=== PATIENT | male | born 1970 | race Two or more races ===

== ENCOUNTER 2024-07-12 14:11 | Outpatient (AMB) | payer OTHER, SELFPAY ==
[2024-07-12 14:42] VITALS: BP 137/77; PULSE 82; RESP 19; TEMP 36.6; O2SAT 95; BMI 34.4
--- NOTE | 2024-07-12 14:42 | PD.ORTHCLVIS ---
Vital signs 07/12/24 14:42 Height 1.63 m Height Method Stated Weight 91.654 kg Weight Measurement Method Standing Scale BMI 34.4 BP 137/77 H Blood Pressure Source Automatic Cuff Blood Pressure Location Left Upper Arm Position Sitting Respiration 19 Pulse 82 Pulse Source Monitor Temp 97.8 F Temp Source Temporal Artery Scan Pulse Oximetry (%) 95 Oxygen Delivery Method Room Air Med/Allergies Allergies & Medications Allergies No Known Drug Allergies Allergy (Verified 07/12/24 14:43) Medication Reconciliation amlodipine 10 mg tablet 10 mg PO QDAY 04/05/24 [History Confirmed 07/12/24] atorvastatin 20 mg tablet 20 mg PO QDAY 04/05/24 [History Confirmed 07/12/24] hydrochlorothiazide 25 mg tablet 25 mg PO QDAY 04/05/24 [History Confirmed 07/12/24] lisinopril 10 mg tablet 10 mg PO QDAY 04/05/24 [History Confirmed 07/12/24] meloxicam 7.5 mg tablet 7.5 mg PO QDAY #45 tabs 04/05/24 [Rx Confirmed 07/12/24] Exam Exam Patient is in no acute distress and is cooperative with the examination today. Breathing is nonlabored. In no respiratory distress. Bilateral extremities were evaluated and demonstrates sensation intact to light touch. Palpable pedal pulses are present. No significant edema is present. Bilateral hips were examined. The patient has no pain with log roll of the hips. Internal rotation to 30 degrees and external rotation to 30 degrees is painless. Negative FADIR. The left knee was examined. The left knee is in [varus] alignment. Range of motion from [0-115] degrees. Knee is stable to varus and valgus as well as AP translation with <5mm. Patient has a [negative] McMurrays. There is [no] pain with patellofemoral compression and [no] crepitus noted. The knee is [tender] to palpation [medially]. The right knee was also examined. The right knee is in [varus] alignment. Range of motion from [0-120] degrees. Knee is stable to varus and valgus as well as AP translation with <5mm. Patient has a [negative] McMurrays. There is [no] pain with patellofemoral compression and [no] crepitus noted. The knee is [tender] to palpation [medially]. Bilateral knee xrays demonstrate significant joint space narrowing and medially. There is complete obliteration of the medial joint space. Assessment and Plan Problem List (1) Degenerative arthritis of knee, bilateral: Status: Acute Plan: Patient is a pleasant 53-year-old male with bilateral knee pain and bilateral knee arthritis. We discussed nonoperative and operative options. We discussed cortisone injections and he wants them today. Recommend knee cortisone injections as patient would like to proceed with conservative treatment at this time. The risks and benefits of the procedure were reviewed with the patient and patient gave verbal consent to continue with the procedure. Procedure: performed by Dr. Crowell Using sterile technique the Bilateral knees were thoroughly prepped with alcohol, and approximately 1 cc of Kenalog 40 mg/mL and 4 cc of 1% lidocaine was injected into each knee without resistance into the medial tibial femoral joint space. The patient tolerated the procedure. Office Procedures GNS Level of Care Nursing/Assessment Patient Status: Established Patient Nursing Assessment/Reassesment: Medication Reconciliation, Update PMH in EMR and Vital Signs Coordination of Care: Complex Care and Chronic Disease 1-5, Education Complex Pt/Fam, Consent,records obtained, informed consent, Results/Orders obtained and Staff clarify orders Special Needs: Language special needs Established Patient Charge Established Patient Point Assignment: 95 Established Patient Point Charge: EP Level 3 (80-115) MA Intake Visit Data Collection New Patient or Established: Established Patient (seen at [facility] [place] 3 years) Reason for Visit:: BL KNEE INJECTION Seen by Clinical Staff ONLY (RN/MA): No Host And Hostess Required: Yes PCP or OBGYN visit in last 3 months: Yes Hx Now: No Do You Feel Safe at Home: Yes Authorities Contacted: N/A Questionairres Past Medical History Past Medical History Have you ever been diagnosed with any of the following: Cardiology Problems Hypertension: Yes Respiratory Problems Smoking: No Smoking Cessation Counseling: No Smoking Exposure: No Tobacco Use: No Clubbing: No Subjective Visit Visit for: follow up visit, knee (BILATERAL) and injections Immunization / Flu Flu Vaccine in the Last 12 Months: No Flu Vaccine Exclusion Criteria: No Exclusion Criteria History of Present Illness Patient is a 53-year-old male with left greater than right knee pain. The last injection worked for 2 months. He would like repeat once today. Pain Pain level (0-10): 8 Pain duration: CONSTANT Pain location: inside (medial), outside (lateral), anterior and posterior Pain quality: sharp, dull and aching Pain timing: increases with activity and stairs Associated signs & symptoms: weakness Ambulatory data Ambulatory device: none Treatments Improvement with previous injections: No Improvement with PT: No Improvement with NSAIDS: no Review of Systems Review of Systems: All systems negative unless otherwise noted in HPI.
== END 2024-07-12 15:09 | disposition home or self-care (01) ==
PROVIDERS: PCP Nurse Practitioner Family; Referring Provider Nurse Practitioner Family; Supervising Provider Orthopaedic Surgery Adult Reconstructive Orthopaedic Surgery; Visit Provider Orthopaedic Surgery Adult Reconstructive Orthopaedic Surgery
DX: M17.0 Bilateral primary osteoarthritis of knee (principal); M25.562 Pain in left knee; M25.561 Pain in right knee; I10 Essential (primary) hypertension
CPT/HCPCS: 20610; 99213; J3301; J3490; G0463

== ENCOUNTER 2024-10-10 13:54 | Outpatient (AMB) | payer MEDICAID, SELFPAY ==
[2024-10-10 14:06] VITALS: BP 137/80; PULSE 72; RESP 18; TEMP 36.7; O2SAT 98; BMI 33.0
--- NOTE | 2024-10-10 14:06 | PD.ORTHCLVIS ---
Vital signs 10/10/24 14:06 Height 1.63 m Height Method Stated Weight 87.77 kg Weight Measurement Method Standing Scale BMI 33.0 BP 137/80 H Blood Pressure Source Automatic Cuff Blood Pressure Location Right Upper Arm Position Sitting Respiration 18 Pulse 72 Pulse Source Monitor Temp 98.1 F Temp Source Temporal Artery Scan Pulse Oximetry (%) 98 Oxygen Delivery Method Room Air Med/Allergies Allergies & Medications Allergies No Known Drug Allergies Allergy (Verified 10/10/24 14:07) Medication Reconciliation amlodipine 10 mg tablet 10 mg PO QDAY 04/05/24 [History Confirmed 10/10/24] atorvastatin 20 mg tablet 20 mg PO QDAY 04/05/24 [History Confirmed 10/10/24] hydrochlorothiazide 25 mg tablet 25 mg PO QDAY 04/05/24 [History Confirmed 10/10/24] lisinopril 10 mg tablet 10 mg PO QDAY 04/05/24 [History Confirmed 10/10/24] meloxicam 7.5 mg tablet 7.5 mg PO QDAY #45 tabs 04/05/24 [Rx Confirmed 10/10/24] Exam Exam Patient is in no acute distress and is cooperative with the examination today. Breathing is nonlabored. In no respiratory distress. Bilateral extremities were evaluated and demonstrates sensation intact to light touch. Palpable pedal pulses are present. No significant edema is present. Bilateral hips were examined. The patient has no pain with log roll of the hips. Internal rotation to 30 degrees and external rotation to 30 degrees is painless. Negative FADIR. The left knee was examined. The left knee is in [varus] alignment. Range of motion from [0-115] degrees. Knee is stable to varus and valgus as well as AP translation with <5mm. Patient has a [negative] McMurrays. There is [no] pain with patellofemoral compression and [no] crepitus noted. The knee is [tender] to palpation [medially]. The right knee was also examined. The right knee is in [varus] alignment. Range of motion from [0-120] degrees. Knee is stable to varus and valgus as well as AP translation with <5mm. Patient has a [negative] McMurrays. There is [no] pain with patellofemoral compression and [no] crepitus noted. The knee is [tender] to palpation [medially]. Bilateral knee xrays demonstrate significant joint space narrowing and medially. There is complete obliteration of the medial joint space. Assessment and Plan Problem List (1) Degenerative arthritis of knee, bilateral: Status: Acute Plan: Patient is a pleasant 53-year-old male with bilateral knee pain and bilateral knee arthritis. We discussed nonoperative and operative options. We discussed cortisone injections and he wants them today. We talked about TKA again in great detail today Recommend knee cortisone injections as patient would like to proceed with conservative treatment at this time. The risks and benefits of the procedure were reviewed with the patient and patient gave verbal consent to continue with the procedure. Procedure: performed by Dr. Crowell Using sterile technique the Bilateral knees were thoroughly prepped with alcohol, and approximately 1 cc of Kenalog 40 mg/mL and 4 cc of 1% lidocaine was injected into each knee without resistance into the medial tibial femoral joint space. The patient tolerated the procedure. Office Procedures GNS Level of Care Nursing/Assessment Patient Status: Established Patient Nursing Assessment/Reassesment: Medication Reconciliation, Update PMH in EMR and Vital Signs Coordination of Care: Complex Care and Chronic Disease 1-5, Education Complex Pt/Fam, Consent,records obtained, informed consent, Results/Orders obtained and Staff clarify orders Special Needs: Language special needs (LAO ) Established Patient Charge Established Patient Point Assignment: 95 Established Patient Point Charge: EP Level 3 (80-115) Surgical Proc/IM SQ injection Major Surgical Procedure: Yes (BILATERAL KNEE INJECTION) Medication Given Medication Given Medication Given: Yes Documented Dose Given: 8 Route: Infiitration Medication Given Medication Given Medication Given: Yes Documented Dose Given: 2 Route: Infiitration Office Meds Xylocaine 10 mg/mL (1 %) injection solution Performing Provider: Ajith Crowell MD Performing Location: [facility] Administered by: Ajith Crowell MD on 10/10/24 14:11 Dose Route Admin Location Dispensed Lot Number Expiration Date [facility] [employer] Mix[employer] 40 mL Infiltration 40 mL [id number] 12/24/27 19091-466-19 [facility] triamcinolone acetonide 40 mg/mL suspension for injection Performing Provider: Ajith Crowell MD Performing Location: [facility] Administered by: Ajith Crowell MD on 10/10/24 14:11 Dose Route Admin Location Dispensed Lot Number Expiration Date [facility] [employer] 80 mg intra-articular 2 mL [id number] 02/22/26 7549-7624-27 [employer] Questionairres Past Medical History Past Medical History Have you ever been diagnosed with any of the following: Cardiology Problems Hypertension: Yes Respiratory Problems Smoking: No Smoking Cessation Counseling: No Smoking Exposure: No Tobacco Use: No Clubbing: No Subjective Visit Visit for: follow up visit, knee (BILATERAL) and injections Immunization / Flu Flu Vaccine in the Last 12 Months: No Flu Vaccine Exclusion Criteria: No Exclusion Criteria History of Present Illness Patient is a 53-year-old male with left greater than right knee pain. The last injection worked for 2 months. He would like repeat once today. Pain Pain level (0-10): 8 Pain duration: CONSTANT Pain location: inside (medial), outside (lateral), anterior and posterior Pain quality: sharp, dull and aching Pain timing: increases with activity and stairs Associated signs & symptoms: weakness Ambulatory data Ambulatory device: none Treatments Improvement with previous injections: No Improvement with PT: No Improvement with NSAIDS: no Review of Systems Review of Systems: All systems negative unless otherwise noted in HPI.
--- NOTE | 2024-10-10 14:06 | PD.ORTHCLVIS ---
Vital signs 10/10/24 14:06 Height 1.63 m Height Method Stated Weight 87.77 kg Weight Measurement Method Standing Scale BMI 33.0 BP 137/80 H Blood Pressure Source Automatic Cuff Blood Pressure Location Right Upper Arm Position Sitting Respiration 18 Pulse 72 Pulse Source Monitor Temp 98.1 F Temp Source Temporal Artery Scan Pulse Oximetry (%) 98 Oxygen Delivery Method Room Air Med/Allergies Allergies & Medications Allergies No Known Drug Allergies Allergy (Verified 10/10/24 14:07) Medication Reconciliation amlodipine 10 mg tablet 10 mg PO QDAY 04/05/24 [History Confirmed 10/10/24] atorvastatin 20 mg tablet 20 mg PO QDAY 04/05/24 [History Confirmed 10/10/24] hydrochlorothiazide 25 mg tablet 25 mg PO QDAY 04/05/24 [History Confirmed 10/10/24] lisinopril 10 mg tablet 10 mg PO QDAY 04/05/24 [History Confirmed 10/10/24] meloxicam 7.5 mg tablet 7.5 mg PO QDAY #45 tabs 04/05/24 [Rx Confirmed 10/10/24] Office Procedures GNS Level of Care Nursing/Assessment Patient Status: Established Patient Nursing Assessment/Reassesment: Medication Reconciliation, Update PMH in EMR and Vital Signs Coordination of Care: Complex Care and Chronic Disease 1-5, Education Complex Pt/Fam, Consent,records obtained, informed consent, Results/Orders obtained and Staff clarify orders Special Needs: Language special needs ([place] ) Established Patient Charge Established Patient Point Assignment: 95 Established Patient Point Charge: EP Level 3 (80-115) Surgical Proc/IM SQ injection Major Surgical Procedure: Yes (BILATERAL KNEE INJECTION) Medication Given Medication Given Medication Given: Yes Documented Dose Given: 8 Route: Infiitration Medication Given Medication Given Medication Given: Yes Documented Dose Given: 2 Route: Infiitration Office Meds Xylocaine 10 mg/mL (1 %) injection solution Performing Provider: Ajith Crowell MD Performing Location: [facility] Administered by: Ajith Crowell MD on 10/10/24 14:11 Dose Route Admin Location Dispensed Lot Number Expiration Date [facility] Pump Technician 40 mL Infiltration 40 mL [id number] 12/24/27 19063-712-53 [employer] triamcinolone acetonide 40 mg/mL suspension for injection Performing Provider: Ajith Crowell MD Performing Location: [facility] Administered by: Ajith Crowell MD on 10/10/24 14:11 Dose Route Admin Location Dispensed Lot Number Expiration Date [facility] Pump Technician 80 mg intra-articular 2 mL [id number] 02/22/26 3727-0140-13 TEV[employer] PARENTER[employer] MA Intake Visit Data Collection New Patient or Established: Established Patient (seen at [facility] within 3 years) Reason for Visit:: 3 MNTH BILAT KNEE PAIN Seen by Clinical Staff ONLY (RN/MA): No Entry Level Sales Consultant Required: Yes PCP or OBGYN visit in last 3 months: Yes Hx Now: No Do You Feel Safe at Home: Yes Authorities Contacted: N/A Questionairres Past Medical History Past Medical History Have you ever been diagnosed with any of the following: Cardiology Problems Hypertension: Yes Respiratory Problems Smoking: No Smoking Cessation Counseling: No Smoking Exposure: No Tobacco Use: No Clubbing: No Subjective Visit Visit for: follow up visit and knee (BILATERAL KNEE ) Immunization / Flu Flu Vaccine in the Last 12 Months: No Flu Vaccine Exclusion Criteria: Refused by Patient Personal History Red flag PMH: none Pain Pain level (0-10): 8 Pain duration: 1 YEAR Pain location: anterior Pain quality: sharp, aching and shocking Pain timing: increases with activity (WALKING THROUGHOUT THE DAY ) Associated signs & symptoms: numbness and stiffness Ambulatory data Ambulatory device: none Walking distance (minutes): 1 Treatments Number of previous injections: 2 Improvement with previous injections: No Number of Physical Therapy sessions: 0 Improvement with NSAIDS: n/a Review of Systems Review of Systems: All systems negative unless otherwise noted in HPI.
== END 2024-10-10 14:33 | disposition home or self-care (01) ==
LOC: HODSRG 13:54
PROVIDERS: PCP Nurse Practitioner Family; Referring Provider Nurse Practitioner Family; Supervising Provider Orthopaedic Surgery Adult Reconstructive Orthopaedic Surgery; Visit Provider Orthopaedic Surgery Adult Reconstructive Orthopaedic Surgery
DX: M17.0 Bilateral primary osteoarthritis of knee (principal); M25.562 Pain in left knee; M25.561 Pain in right knee; I10 Essential (primary) hypertension
CPT/HCPCS: 20610; 99213; J3301; J3490; G0463

== ENCOUNTER → 2024-11-25 | Outpatient (CLI) | payer MEDICAID, SELFPAY ==
--- NOTE | 2024-11-25 12:43 | XR_ITS ---
Lumbar spine 3 views Technique one AP lateral coned lateral lower lumbar spine 3 views Date and time: November 25, 2024 1406 hours INDICATIONS: Low back pain 3 years getting worse FINDINGS: Adequate alignment lumbar vertebral bodies Moderate degenerative disc disease L4-L5, L5-S1 Prominent posterior osteophyte formation at the L4-L5 level No lumbar fracture IMPRESSION: Moderate degenerative disc disease L4-L5, L5-S1 Significant spinal stenosis L4-L5
== END | disposition home or self-care (01) ==
LOC: SDIM 12:31
PROVIDERS: PCP Nurse Practitioner Family; Referring Provider Nurse Practitioner Family; Visit Provider Nurse Practitioner Family
DX: M51.360 Other intervertebral disc degeneration, lumbar region with discogenic back pain only (principal); M51.370 Other intervertebral disc degeneration, lumbosacral region with discogenic back pain only; M48.061 Spinal stenosis, lumbar region without neurogenic claudication
CPT/HCPCS: 72100

== ENCOUNTER 2025-01-17 13:52 | Outpatient (AMB) | payer MEDICAID, SELFPAY ==
[2025-01-17 14:22] VITALS: BP 134/79; PULSE 85; RESP 18; TEMP 36.6; O2SAT 96; BMI 33.3
--- NOTE | 2025-01-17 14:22 | ORTHONT_ITS ---
Vital signs 01/17/25 14:22 Height 1.63 m Height Method Stated Weight 88.536 kg Weight Measurement Method Standing Scale BMI 33.3 BP 134/79 H Blood Pressure Source Automatic Cuff Blood Pressure Location Left Upper Arm Position Sitting Respiration 18 Pulse 85 Pulse Source Monitor Temp 97.9 F Temp Source Temporal Artery Scan Pulse Oximetry (%) 96 Oxygen Delivery Method Room Air Med/Allergies Allergies & Medications Allergies No Known Drug Allergies Allergy (Verified 01/17/25 14:22) Medication Reconciliation amlodipine 10 mg tablet 10 mg PO QDAY 04/05/24 [History Confirmed 01/17/25] atorvastatin 20 mg tablet 20 mg PO QDAY 04/05/24 [History Confirmed 01/17/25] hydrochlorothiazide 25 mg tablet 25 mg PO QDAY 04/05/24 [History Confirmed 01/17/25] lisinopril 10 mg tablet 10 mg PO QDAY 04/05/24 [History Confirmed 01/17/25] meloxicam 7.5 mg tablet 7.5 mg PO QDAY #45 tabs 04/05/24 [Rx Confirmed 01/17/25] Exam Exam Patient is in no acute distress and is cooperative with the examination today. Breathing is nonlabored. In no respiratory distress. Bilateral extremities were evaluated and demonstrates sensation intact to light touch. Palpable pedal pulses are present. No significant edema is present. Bilateral hips were examined. The patient has no pain with log roll of the hips. Internal rotation to 30 degrees and external rotation to 30 degrees is painless. Negative FADIR. The left knee was examined. The left knee is in [varus] alignment. Range of motion from [0-115] degrees. Knee is stable to varus and valgus as well as AP translation with <5mm. Patient has a [negative] McMurrays. There is [no] pain with patellofemoral compression and [no] crepitus noted. The knee is [tender] to palpation [medially]. The right knee was also examined. The right knee is in [varus] alignment. Range of motion from [0-120] degrees. Knee is stable to varus and valgus as well as AP translation with <5mm. Patient has a [negative] McMurrays. There is [no] pain with patellofemoral compression and [no] crepitus noted. The knee is [tender] to palpation [medially]. Bilateral knee xrays demonstrate significant joint space narrowing and medially. There is complete obliteration of the medial joint space. Assessment and Plan Problem List (1) Degenerative arthritis of knee, bilateral: Status: Acute Plan: Patient is a pleasant 53-year-old male with bilateral knee pain and bilateral knee arthritis. We discussed nonoperative and operative options. We discussed cortisone injections and he wants them today. We talked about TKA again in great detail today Recommend knee cortisone injection as patient would like to proceed with conservative treatment at this time. The risks and benefits of the procedure were reviewed with the patient and patient gave verbal consent to continue with the procedure. Procedure: performed by Dr. Crowell Using sterile technique the left knee was thoroughly prepped with alcohol, and approximately 1 cc of Depo-Medrol 80mg/mL and 4 cc of 0.2% ropivacaine was injected without resistance into the medial tibial femoral joint space. The patient tolerated the procedure. Recommend knee cortisone injection as patient would like to proceed with conservative treatment at this time. The risks and benefits of the procedure were reviewed with the patient and patient gave verbal consent to continue with the procedure. Procedure: performed by Dr. Crowell Using sterile technique the Right knee was thoroughly prepped with alcohol, and approximately 1 cc of Depo-Medrol 80mg/mL and 4 cc of 0.2% ropivacaine was injected without resistance into the medial tibial femoral joint space. The patient tolerated the procedure. Office Procedures GNS Level of Care Nursing/Assessment Patient Status: Established Patient Nursing Assessment/Reassesment: Medication Reconciliation, Update PMH in EMR and Vital Signs Coordination of Care: Complex Care and Chronic Disease 1-5, Education Complex Pt/Fam, Consent,records obtained, informed consent, Results/Orders obtained and Staff clarify orders Established Patient Charge Established Patient Point Assignment: 95 Established Patient Point Charge: EP Level 3 (80-115) Surgical Proc/IM SQ injection Major Surgical Procedure: Yes (BILATERAL KNEE INJECTION) Medication Given Medication Given Medication Given: Yes Documented Dose Given: 1 Route: Infiitration Medication Given Medication Given Medication Given: Yes Documented Dose Given: 1 Route: Infiitration Medication Given Medication Given Medication Given: Yes Documented Dose Given: 4 Route: Infiitration Medication Given Medication Given Medication Given: Yes Documented Dose Given: 4 Route: Infiitration Office Meds methylprednisolone acetate 80 mg/mL suspension for injection Performing Provider: Ajith Crowell MD Performing Location: [facility] Administered by: Ajith Crowell MD on 01/17/25 15:02 Dose Route Admin Location Dispensed Lot Number Expiration Date [facility] [employer]er 80 mg intra-articular 1 mL [id number] 05/25/26 [address]-2 [employer] methylprednisolone acetate 80 mg/mL suspension for injection Performing Provider: Ajith Crowell MD Performing Location: [facility] Administered by: Ajith Crowell MD on 01/17/25 15:02 Dose Route Admin Location Dispensed Lot Number Expiration Date [facility] [employer] Worker 80 mg intra-articular 1 mL [id number] 05/25/26 [address]-9 [employer] ropivacaine (PF) 2 mg/mL (0.2 %) injection solution Performing Provider: Ajith Crowell MD Performing Location: [facility] Administered by: Ajith Crowell MD on 01/17/25 15:02 Dose Route Admin Location Dispensed Lot Number Expiration Date [facility] [employer] Worker 20 mL Infiltration 20 mL [id number] 05/25/26 14829-254-88 ICND[employer] NIUS KABI ropivacaine (PF) 2 mg/mL (0.2 %) injection solution Performing Provider: Ajith Crowell MD Performing Location: [facility] Administered by: Ajith Crowell MD on 01/17/25 15:02 Dose Route Admin Location Dispensed Lot Number Expiration Date [facility] [employer] Worker 20 mL Infiltration 20 mL [id number] 05/25/26 58619-384-14 CINDY NIUS KABI MA Intake Visit Data Collection New Patient or Established: Established Patient (seen at [facility] within 3 years) Reason for Visit:: 3 MNTH BILAT KNEE PAIN Seen by Clinical Staff ONLY (RN/MA): No Payroll Representative Required: Yes PCP or OBGYN visit in last 3 months: Yes Hx Now: No Do You Feel Safe at Home: Yes Authorities Contacted: N/A Questionairres Past Medical History Past Medical History Have you ever been diagnosed with any of the following: Cardiology Problems Hypertension: Yes Respiratory Problems Smoking: No Smoking Cessation Counseling: No Smoking Exposure: No Tobacco Use: No Clubbing: No Subjective Visit Visit for: follow up visit and knee (BILATERAL KNEE ) Immunization / Flu Flu Vaccine in the Last 12 Months: No Flu Vaccine Exclusion Criteria: Refused by Patient History of Present Illness Patient is a 53-year-old male with left greater than right knee pain. The last injection worked for 2 months. He would like to repeat an injection again Personal History Red flag PMH: none Pain Pain level (0-10): 8 Pain duration: 1 YEAR Pain location: anterior Pain quality: sharp, aching and shocking Pain timing: increases with activity (WALKING THROUGHOUT THE DAY ) Associated signs & symptoms: numbness and stiffness Ambulatory data Ambulatory device: none Walking distance (minutes): 1 Treatments Number of previous injections: 2 Improvement with previous injections: No Number of Physical Therapy sessions: 0 Improvement with PT: No Improvement with NSAIDS: n/a Review of Systems Review of Systems: All systems negative unless otherwise noted in HPI.
== END 2025-01-17 14:37 | disposition home or self-care (01) ==
LOC: HODSRG 13:52
PROVIDERS: PCP Nurse Practitioner Family; Referring Provider Nurse Practitioner Family; Supervising Provider Orthopaedic Surgery Adult Reconstructive Orthopaedic Surgery; Visit Provider Orthopaedic Surgery Adult Reconstructive Orthopaedic Surgery
DX: M17.0 Bilateral primary osteoarthritis of knee (principal); M25.562 Pain in left knee; M25.561 Pain in right knee; I10 Essential (primary) hypertension
CPT/HCPCS: 20610; 99213; J1010; J2795; G0463

== ENCOUNTER 2025-04-17 14:42 | Outpatient (AMB) | payer MEDICAID, SELFPAY ==
[2025-04-17 15:03] VITALS: BP 133/84; PULSE 84; RESP 18; TEMP 36.3; O2SAT 95; BMI 32.6
--- NOTE | 2025-04-17 15:03 | ORTHONT_ITS ---
Vital signs 04/17/25 15:03 Height 1.63 m Height Method Stated Weight 86.778 kg Weight Measurement Method Standing Scale BMI 32.6 BP 133/84 H Blood Pressure Source Automatic Cuff Blood Pressure Location Left Upper Arm Position Sitting Respiration 18 Pulse 84 Pulse Source Monitor Temp 97.4 F Temp Source Temporal Artery Scan Pulse Oximetry (%) 95 Oxygen Delivery Method Room Air Med/Allergies Allergies & Medications Allergies No Known Drug Allergies Allergy (Verified 04/17/25 15:03) Medication Reconciliation amlodipine 10 mg tablet 10 mg PO QDAY 04/05/24 [History Confirmed 04/17/25] atorvastatin 20 mg tablet 20 mg PO QDAY 04/05/24 [History Confirmed 04/17/25] hydrochlorothiazide 25 mg tablet 25 mg PO QDAY 04/05/24 [History Confirmed 04/17/25] lisinopril 10 mg tablet 10 mg PO QDAY 04/05/24 [History Confirmed 04/17/25] meloxicam 7.5 mg tablet 7.5 mg PO QDAY #45 tabs 04/17/25 [Rx] Exam Exam Patient is in no acute distress and is cooperative with the examination today. Breathing is nonlabored. In no respiratory distress. Bilateral extremities were evaluated and demonstrates sensation intact to light touch. Palpable pedal pulses are present. No significant edema is present. Bilateral hips were examined. The patient has no pain with log roll of the hips. Internal rotation to 30 degrees and external rotation to 30 degrees is painless. Negative FADIR. The left knee was examined. The left knee is in [varus] alignment. Range of motion from [0-115] degrees. Knee is stable to varus and valgus as well as AP translation with <5mm. Patient has a [negative] [place]. There is [no] pain with patellofemoral compression and [no] crepitus noted. The knee is [tender] to palpation [medially]. The right knee was also examined. The right knee is in [varus] alignment. Range of motion from [0-120] degrees. Knee is stable to varus and valgus as well as AP translation with <5mm. Patient has a [negative] [place]. There is [no] pain with patellofemoral compression and [no] crepitus noted. The knee is [tender] to palpation [medially]. Bilateral knee xrays demonstrate significant joint space narrowing and medially. There is complete obliteration of the medial joint space. Assessment and Plan Problem List (1) Degenerative arthritis of knee, bilateral: Status: Acute Plan: Patient is a pleasant 53-year-old male with bilateral knee pain and bilateral kn ee arthritis. We discussed nonoperative and operative options. We discussed cortisone injections and he wants them today. We talked about TKA again in great detail today Recommend knee cortisone injection as patient would like to proceed with conservative treatment at this time. The risks and benefits of the procedure were reviewed with the patient and patient gave verbal consent to continue with the procedure. Procedure: performed by Dr. Crowell Using sterile technique the left knee was thoroughly prepped with alcohol, and approximately 1 cc of Depo-Medrol 80mg/mL and 4 cc of 0.2% ropivacaine was injected without resistance into the medial tibial femoral joint space. The patient tolerated the procedure. Recommend knee cortisone injection as patient would like to proceed with conservative treatment at this time. The risks and benefits of the procedure were reviewed with the patient and patient gave verbal consent to continue with the procedure. Procedure: performed by Dr. Crowell Using sterile technique the Right knee was thoroughly prepped with alcohol, and approximately 1 cc of Depo-Medrol 80mg/mL and 4 cc of 0.2% ropivacaine was injected without resistance into the medial tibial femoral joint space. The patient tolerated the procedure. Office Procedures GNS Level of Care Nursing/Assessment Patient Status: Established Patient Nursing Assessment/Reassesment: Medication Reconciliation, Update PMH in EMR and Vital Signs Coordination of Care: Complex Care and Chronic Disease 1-5, Education Complex Pt/Fam, Consent,records obtained, informed consent, Results/Orders obtained and Staff clarify orders Special Needs: Language special needs Established Patient Charge Established Patient Point Assignment: 95 Established Patient Point Charge: EP Level 3 (80-115) Surgical Proc/IM SQ injection Minor Surgical Procedure: Yes (BILATERAL KNEE INJECTION) Medication Given Medication Given Medication Given: Yes Documented Dose Given: 2 Route: Infiitration Medication Given Medication Given Medication Given: Yes Documented Dose Given: 8 Route: Infiitration Office Meds methylprednisolone acetate 80 mg/mL suspension for injection Performing Provider: Ajith Crowell MD Performing Location: [facility] Administered by: Ajith Crowell MD on 04/17/25 15:27 Dose Route Admin Location Dispensed Lot Number Expiration Date Pack age [facility] Lockstitch Collar Setter 160 mg intra-articular KNEE 2 mL [id number] 12/23/26 [address]-8 [id number] [employer] ropivacaine (PF) 2 mg/mL (0.2 %) injection solution Performing Provider: Ajith Crowell MD Performing Location: [facility] Administered by: Ajith Crowell MD on 04/17/25 15:27 Dose Route Admin Location Dispensed Lot Number Expiration Date Pack age [facility] Lock[employer]ch Collar Setter 40 mL Infiltration KNEE 40 mL [id number] 07/25/27 12153-697-42 [id number] [facility] Intake Visit Data Collection New Patient or Established: Established Patient (seen at [facility] within 3 years) Reason for Visit:: 3 MNTH BILAT KNEE PAIN Seen by Clinical Staff ONLY (RN/MA): No [employer] Super[employer] Required: Yes PCP or OBGYN visit in last 3 months: Yes Hx Now: No Do You Feel Safe at Home: Yes Authorities Contacted: N/A Questionairres Past Medical History Past Medical History Have you ever been diagnosed with any of the following: Cardiology Problems Hypertension: Yes Respiratory Problems Smoking: No Smoking Cessation Counseling: No Smoking Exposure: No Tobacco Use: No Clubbing: No Subjective Visit Visit for: follow up visit and knee (BILATERAL KNEE ) Immunization / Flu Flu Vaccine in the Last 12 Months: No Flu Vaccine Exclusion Criteria: Refused by Patient History of Present Illness Patient is a 53-year-old male with left greater than right knee pain. The last injection worked for 2 months. He would like to repeat an injection again Personal History Red flag PMH: none Pain Pain level (0-10): 8 Pain duration: 1 YEAR Pain location: anterior Pain quality: sharp, aching and shocking Pain timing: increases with activity (WALKING THROUGHOUT THE DAY ) Associated signs & symptoms: numbness and stiffness Ambulatory data Ambulatory device: none Walking distance (minutes): 1 Treatments Number of previous injections: 2 Improvement with previous injections: No Number of Physical Therapy sessions: 0 Improvement with PT: No Improvement with NSAIDS: n/a Review of Systems Review of Systems: All systems negative unless otherwise noted in HPI.
== END 2025-04-17 15:12 | disposition home or self-care (01) ==
PROVIDERS: PCP Nurse Practitioner Family; Referring Provider Nurse Practitioner Family; Supervising Provider Orthopaedic Surgery Adult Reconstructive Orthopaedic Surgery; Visit Provider Orthopaedic Surgery Adult Reconstructive Orthopaedic Surgery
DX: M25.562 Pain in left knee (principal); M25.561 Pain in right knee; M17.0 Bilateral primary osteoarthritis of knee; I10 Essential (primary) hypertension
CPT/HCPCS: 20610; 99213; J1010; J2795; G0463